=== PATIENT | female | born 1970 | race Caucasian/White ===

== ENCOUNTER 2017-09-04 11:27 | Emergency (ER) | payer BC ==
[2017-09-04 13:58] VITALS: BP 126/89
--- NOTE | 2017-09-04 13:58 | UC ---
Throat Pain/Nasal Lan HPI - HPI Summary HPI Summary: 47 y/o female presents to the urgent care c/o flu like symptoms with body aches , productive cough, fatigue, subjective fever at home since Last 2017. Pt has not taking anything to alleviate symptoms. MOSES is 5/10. Pt denies SOB, chest pain, abdominal pain, N/V/D - History of Current Complaint Chief Complaint: UCGeneralIllness Stated Complaint: FLU SX Time Seen by Provider: 09/04/17 13:56 Hx Obtained From: Patient Hx Last Menstrual Period: ablasion ?: No Onset/Duration: Gradual Onset, Lasting Days - 5 days, Still Present, Worse Since - yesterday Severity: Moderate Pain Intensity: 5 - MOSES Pain Scale Used: 0-10 Numeric Cough: Sputum Appears Associated Signs & Symptoms: Positive: Sinus Discomfort, Nasal Discharge, Fever - subjective at home - Epiglottits Risk Factors Epiglottis Risk Factors: Negative - Allergies/Home Medications Allergies/Adverse Reactions: Allergies Allergy/AdvReac Type Severity Reaction Status Date / Time No Known Allergies Allergy Verified 09/04/17 13:58 PMH/Surg Hx/FS Hx/Imm Hx Previously Healthy: Yes - Pt denies PMHX - Surgical History Surgical History: Yes Surgery Procedure, Year, and Place: uterine ablation - Family History Known Family History: Positive: None - Pt denies FMHX Negative: Cardiac Disease, Hypertension, Diabetes, Respiratory Disease - Social History Occupation: Employed Full-time Lives: With Family Alcohol Use: Occasionally Substance Use Type: None Smoking Status (MU): Never Smoked Tobacco - Immunization History Most Recent Influenza Vaccination: not current Review of Systems Constitutional: Fever, Chills Skin: Negative Eyes: Negative ENT: Sore Throat, Nasal Discharge, Sinus Congestion Respiratory: Cough - Productive with yellowish sputum Cardiovascular: Negative Gastrointestinal: Negative Genitourinary: Negative Motor: Negative Neurovascular: Negative Musculoskeletal: Negative Neurological: Negative Psychological: Negative Is Patient Immunocompromised?: No All Other Systems Reviewed And Are Negative: Yes Physical Exam Triage Information Reviewed: Yes Vital Signs: Initial Vital Signs Temp 99.0 F 09/04/17 13:53 Pulse 82 09/04/17 13:53 Resp 18 09/04/17 13:53 BP 126/89 09/04/17 13:53 Pulse Ox 99 09/04/17 13:53 - Additional Comments VITAL SIGNS: Reviewed. GENERAL: Patient is a well developed and nourished female who is sitting comfortable in the examining table. Patient is not in any acute respiratory distress. HEAD AND FACE: No signs of trauma. No ecchymosis, hematomas or skull depressions. No sinus tenderness. EYES: PERRLA, EOMI x 2, No injected conjunctiva, no nystagmus. No photophobia. EARS: Hearing grossly intact. Ear canals and tympanic membranes are within normal limits. Nose: erythematous, edematous nasal mucosa with yellowish nasal discharge. MOUTH: Positive pharynx with mild erythema, no exudates, no palatal petechiae. No B/L tonsillar enlargement with exudate. Uvula in midline. NECK: Supple, trachea is midline, Positive anterior cervical lymphadenopathy, no JVD, no carotid bruit, no c-spine tenderness, neck with full ROM. No meningeal signs, no Kernig's or brudzinskis signs. CHEST: Symmetric, no tenderness at palpation LUNGS: Clear to auscultation bilaterally. No wheezing or crackles. CVS: Regular rate and rhythm, S1 and S2 present, no murmurs or gallops appreciated. ABDOMEN: Soft, non-tender. No signs of distention. No rebound no guarding, and no masses palpated. Bowel sounds are normal. EXTREMITIES: FROM in all major joints, no edema, no cyanosis or clubbing. NEURO: Alert and oriented x 3. No acute neurological deficits. Speech is normal and follows commands. SKIN: Dry and warm Throat Pain/Nasal Course/Dx - Course Course Of Treatment: 47 y/o female presents to the urgent care c/o flu like symptoms with body aches, productive cough, fatigue, subjective fever at home since Last 08/31/2017. Pt has not taking anything to alleviate symptoms. MOSES is 5/10. Pt denies SOB, chest pain, abdominal pain, N/V/D. Hx obtained. Pt with URI on examiantion. Influenza A&B ordered: result: Influenza A positive.Pt Rx Tamiflu and ibuprofen PO to alleviates symptoms. tessalon tabs PO cor cough. Advised on hand washing and wear a mask to avoid spreading. Pt advised to rest, increase fluid intake, eat well and avoid strenuous exercise. If symptoms do not improve or worsen advised to return to the urgent care or f/ u with her PCP for further evaluation and treatment. Pt understood and agreed with plan of care. - Differential Dx/Diagnosis Differential Diagnosis/HQI/PQRI: Influenza, Laryngitis, Pharyngitis, Sinusitis, Tonsillitis, URI Provider Diagnoses: 1- Influenza A. 2- Cough Discharge - Discharge Plan Condition: Stable Disposition: HOME Prescriptions: Benzonatate CAP* [Tessalon 100 MG CAP*] 100 mg PO TID #21 cap Ibuprofen TAB* [Motrin TAB* 800 MG] 800 mg PO Q6H #20 tab Oseltamivir CAP* [Tamiflu CAP*] 75 mg PO BID #10 cap Patient Education Materials: Influenza (ED) Forms: *Work Release Referrals: [facility] [place] [facility] [Outside] - 3 Days Additional Instructions: 1- Please take the full course of the antiviral to avoid resistance. Encourage hand washing and wear a mask to avoid spreading. 2-Please continue taking Ibuprofen PO q6-8hrs prn as instructed after meals to alleviate fever, and sore throat. Increase fluid intake, eat well, rest and avoid strenuous exercise 3-If symptoms do not improve or worsen please return to the urgent care or f/u with your PCP in 3 days for further evaluation and treatment.
== END 2017-09-04 14:35 | disposition home or self-care (01) ==
LOC: UCCORT 11:27
DX: J11.1 Influenza due to unidentified influenza virus with other respiratory manifestations (principal); R05 Cough
CPT/HCPCS: 87502; 99212; G0463